=== PATIENT | male | born 1980 | race Two or more races ===

== ENCOUNTER 2016-12-13 17:19 | Emergency (ER) | payer OTHER ==
--- NOTE | ~2016-12-13 | CR181 ---
[facility]. [facility] A Service of [facility] RADIOLOGY TEXT RESULTS PATIENT: LYUDMILA ARAUJO LOCATION: SED : 80 UNIT #: [id number] AGE: [address]: Radha Pryor APRN SEX: M ORDER DR: [id number] [place] [id number] E MR#: [id number] Acc #: [id number] NAME: LYUDMILA ARAUJO : 1980 SEX: M STUDY DATE/TIME: 12/13/2016 17:54 UNIT: SED ROOM: STUDY DESCRIPTION: CR Lumbar Spine 2 or 3 Views Attending Physician: Radha Pryor A.P.R.N. Ordering Physician: Radha Pryor A.P.R.N. Primary Care Physician: No Primary Care Physician MEDICAL IMAGING REPORT This report is preliminary unless electronic signature is present. EXAM Lumbar series, 12/13/16. INDICATIONS 36-year-old male with low back pain symptoms 3 days. Lower back pain. No known injury. "Just started hurting." TECHNIQUE Three views of the lumbar spine were performed. Correlation is made with CT, 06/01/15. FINDINGS Vertebral body heights and alignment preserved. There is some mild disc space narrowing at L3-4. No acute fracture or malalignment. No significant facet arthropathy. Minimal leftward curvature of the mid lumbar spine. IMPRESSION 1. Minimal degenerative change, otherwise, negative. Dictated by... Carlos Manuel Leon M.D. THIS IS AN ELECTRONICALLY VERIFIED REPORT Carlos Manuel Leon M.D. at 12/13/2016 10:17 PM Monty TD: 12/13/2016 19:38 JOB #: [id number] MEDICAL IMAGING REPORT Page 1 of 1
[~2016-12-13 17:19] MED LIST: AMOXIL500 MG PO; BENADRYL25 MG PO; FLEXERIL10 MG PO; IBUPROFEN800 MG PO; KEFLEX500 MG PO; MEDROL DOSEPAK4 MG PO; ORUDIS75 M1 PO; TAMIFLU75 M1 DOB; TAMIFLU75 MG PO; ZANTAC150 MG PO
[2016-12-13] MEDS ORDERED: IBUPROFEN800 MG (17:21)
== END 2016-12-13 19:09 | disposition home or self-care (01) ==
LOC: SED 17:19
DX: M54.42 Lumbago with sciatica, left side (principal); G89.29 Other chronic pain; K21.9 Gastro-esophageal reflux disease without esophagitis; Z87.442 Personal history of urinary calculi; Z90.89 Acquired absence of other organs; Z88.8 Allergy status to other drugs, medicaments and biological substances
CPT/HCPCS: 72100; 96372; 99283; J1885

== ENCOUNTER 2017-02-01 20:26 | Emergency (ER) | payer OTHER ==
[~2017-02-01] VITALS: Ht 165.1 cm; Wt 84.4 kg
[~2017-02-01 20:26] MED LIST changes: +IBUPROFEN800 MG
[2017-02-01] MEDS ORDERED: NO MEDICATIONS (20:38)
== END 2017-02-01 22:11 | disposition home or self-care (01) ==
LOC: SED 20:26
DX: M54.41 Lumbago with sciatica, right side (principal); K21.9 Gastro-esophageal reflux disease without esophagitis; F17.200 Nicotine dependence, unspecified, uncomplicated
CPT/HCPCS: 96372; 99283; J1040; J1885

== ENCOUNTER 2017-02-05 13:41 | Emergency (ER) | payer OTHER ==
[~2017-02-05] VITALS: Ht 165.1 cm; Wt 84.4 kg
[~2017-02-05 13:41] MED LIST changes: +NO MEDICATIONS
== END 2017-02-05 14:45 | disposition home or self-care (01) ==
LOC: CFTX 13:41 → CED 13:41 → CFTX 14:44
DX: S39.012A Strain of muscle, fascia and tendon of lower back, initial encounter (principal); F17.210 Nicotine dependence, cigarettes, uncomplicated; Z88.8 Allergy status to other drugs, medicaments and biological substances; X58.XXXA Exposure to other specified factors, initial encounter; Y92.9 Unspecified place or not applicable
CPT/HCPCS: 99283